=== PATIENT | female | born 1955 | race Caucasian/White ===

== ENCOUNTER 2018-10-02 12:54 | Emergency (ER) | payer OTHER, SELFPAY ==
[2018-10-02 13:07] VITALS: BP 180/100; PULSE 83; RESP 18; TEMP 36.6
--- NOTE | 2018-10-02 13:07 | ED.GENADUL_ITS ---
Discharge Plan Disposition Patient Disposition: HOME Condition: Good Discharge Details Chief Complaint: RespSymp Clinical Impression: URI (upper respiratory infection), COPD exacerbation Reason For Visit: fatigue ED Provider: Filipe Taylor Home Meds and New Rx's Prescriptions: New prednisone 20 mg tablet 60 mg PO DAILY 5 Days Qty: 15 RF: 0 doxycycline hyclate 100 mg tablet 100 mg PO BID Qty: 14 RF: 0 Continue amlodipine 5 mg Tablet 5 mg PO DAILY AM RF: 0 losartan 100 mg Tablet 100 mg PO DAILY AM RF: 0 escitalopram oxalate 20 mg Tablet 20 mg PO DAILY AM RF: 0 Discharge Instructions Instructions: Upper Respiratory Infection (ED) Additional Instructions: I have referred you to a primary care provider that should reach out to you with an appointment. You should discuss with them having testing for copd if you have severe worsening shortness of breath not improving with the inhaler , severe abdominal pain or persistent vomit return to the emergency department Medical Decision Making 63 yo female with hx of htn who hasn't taken her meds today which likely is causing her htn here, comes in with a weak of cough. She describes general weakness and mild frontal headaches over her sinuses, had fevers last week but none for past few days. Denies rashes, recent travel, chest pain or pressure or abd pain. She has wheezing at the bases bilaterally with no evidence of repsiratory distress even when walking. She likely has copd that is undiagnosed given she has smoked for about 35 years. Given no fever here and stable vital signs do not feel xray indicated. I am going to start her on abx and prednisone for possible copd exacerbation and refer her to local pcp as her pcp in [place] retired recently. Differential Diagnosis uri, copd, pna HPI General Mode of arrival: ambulatory . Date/Time Provider Initiated Documentation: 10/02/18 12:55 . Limitations to Documentation: no limitations . Information obtained by: patient . History of Present Illness 63 year old F presents to the emergency department with the chief complaint of cough, described as mild, Patient reports no radiation. Patient started experiencing this week(s) (1) and it has been constant. No relieving factors improve symptom(s), No exacerbating factors reported . Patient did receive the following treatments prior to arrival, none Related Data Home Medications Medication Instructions Recorded Confirmed amlodipine 5 mg PO DAILY AM 10/02/18 10/02/18 doxycycline hyclate 100 mg PO BID #14 tab 10/02/18 escitalopram oxalate 20 mg PO DAILY AM 10/02/18 10/02/18 losartan 100 mg PO DAILY AM 10/02/18 10/02/18 prednisone 60 mg PO DAILY 5 Days #15 tab 10/02/18 Previous Rx's Medication Instructions Recorded doxycycline hyclate 100 mg PO BID #14 tab 10/02/18 prednisone 60 mg PO DAILY 5 Days #15 tab 10/02/18 Allergies Allergy/AdvReac Type Severity Reaction Status Date / Time Sulfa (Sulfonamide Allergy Unverified 10/02/18 13:04 Antibiotics) Review of Systems Review of Systems All systems reviewed & are unremarkable except as noted in HPI and below Eyes Denies loss of vision ENT Denies change in voice Cardiovascular Denies chest pain and Denies dyspnea Respiratory Denies dyspnea Gastrointestinal Denies abdominal pain, Denies nausea and Denies vomiting Genitourinary Denies dysuria Musculoskeletal Denies joint swelling Integumentary/Breasts Denies rash Neurologic Denies loss of vision Psychiatric Denies depression Endocrine Denies cold intolerance and Denies heat intolerance Allergic/Immunologic Denies urticaria Exam Const General: no acute distress Orientation: alert [facility] Head: normal to inspection Ears: external ears normal General nose exam: external nose normal Mouth: moist mucous membranes Eyes General: appearance normal, both eyes and all related structures Neck Neck: normal visual inspection Resp Effort & Inspection: normal respiratory effort and able to speak in complete sentences Auscultation: wheezes Cardio Rate: regular rate Skin General skin exam: no rashes or lesions noted Neuro General: alert and oriented x3 Extrem General: normal to inspection Psych Mental Status: mental status grossly normal
[2018-10-02] MEDS: Albuterol HFA 8 GM 60 PUFF INH IH (13:17)
[2018-10-02] MEDS: Inhaler, Assist Device 1 EACH MC (13:18)
== END 2018-10-02 13:23 | disposition home or self-care (01) ==
LOC: ER 13:57
PROVIDERS: Emergency Provider Emergency Medicine
DX: J06.9 Acute upper respiratory infection, unspecified (principal); J44.1 Chronic obstructive pulmonary disease with (acute) exacerbation; F17.210 Nicotine dependence, cigarettes, uncomplicated; I10 Essential (primary) hypertension
CPT/HCPCS: 99283

== ENCOUNTER 2019-01-27 07:22 | Day surgery (SDC) | payer OTHER, SELFPAY ==
[2019-01-27] VITALS (7 sets, daily range): BP systolic 97–116; BP diastolic 54–75; PULSE 74–85; RESP 1–22; TEMP 36.4–36.6; O2SAT 89–99
--- NOTE | 2019-01-27 06:54 | COLE_ITS ---
Date of service: 01/27/19 Time of Service: 09: Colonoscopy Report Date of procedure: 01/27/19 Pre-op diagnosis general: Colon Cancer Screening Post-op diagnosis procedure note: other (Diverticulosis, multiple polyps) Procedure: Colonoscopy with polypectomy by forceps Surgeon: Lore Diaz Anesthesia proc note operative: other (General/ Nancie Galan CRNA) Estimated blood loss (mL): 5 Pathology: other (ascending colon polyp x3, sigmoid polyps x 2, rectal polyps x5) Complications: None Disposition: same day Indications: Mrs. Sosa is a pleasant 64 year old female seen in the office for a colonoscopy. Risks, benefits and complications have been reviewed. Complications include but are not limited to bleeding, pain, perforation, missed small lesion/polyp, sore throat, aspiration and adverse reaction to the med ications. Questions were entertained and answered to their satisfaction and they wished to proceed. No guarantees were given or implied. Prep: Miralax/Dulcolax Procedure Start Time: : Procedure End Time: 10:08 Retraction Time: 55 minutes Findings: Multiple small polyps noted and removed with cold forceps Diverticulosis of descending and sigmoid colon Procedure Description: After informed consent was obtained the patient was taken to the procedure room and placed in a left decubitous position. Monitors were applied and a time out was done. The patients name, date of , procedure, allergies to medications and metal in their body was reviewed. The patient was then sedated. Once sedated and comfortable a rectal exam was done. External exam was normal. Internal exam revealed a normal sphincter tone and no palpable masses. The scope was then introduced and retro-flexed. Small internal hemorrhoids were identified. The scope was then advanced to the cecum without difficulty. The TI and appendiceal orifice were identified. The prep was good. The scope was advanced into the terminal ileum which was normal. The scope was then slowly retracted over55 minutes back into the rectum. Polyps were removed with cold forceps in the ascending, sigmoid and rectum. The colonoscopy was difficult due to patient coughing throughout the procedure which then collapsed the colon. The patient also had some small amount of bilious emesis which was suctioned by Anesthesia. The scope was removed and the patient was woken up and taken back to Same day surgery in stable condition. She was monitored for any aspiration symptoms. The patient tolerated the procedure well and there were no immediate complications. Follow up: The patient should follow up in 3-5 years unless they develop changes in bowel habits or other new gastrointestinal complaints.
--- NOTE | 2019-01-27 06:54 | W.PM.DSUDISC ---
Discharge Plan Disposition Patient Disposition: HOME Condition: Good Discharge Details Reason For Visit: Screening Colonoscopy Attending Provider: Lore Diaz Primary Care Provider: Fabricio Sterling Home Meds and New Rx's Prescriptions: Continued triamcinolone acetonide 0.1 % cream 1 applic TP TID PRN Qty: 80 RF: 2 fluocinonide 0.05 % solution 1 applic TP BID RF: 0 naltrexone 50 mg tablet 50 mg PO DAILY Qty: 30 RF: 5 amlodipine 10 mg tablet 10 mg PO DAILY Qty: 30 RF: 11 buspirone 10 mg tablet 5 mg PO BID Qty: 60 RF: 11 albuterol sulfate 90 mcg/actuation HFA aerosol inhaler 1 puff IH Q6H PRNRF: 0 losartan 100 mg tablet 100 mg PO DAILY AM RF: 0 escitalopram oxalate 20 mg Tablet 20 mg PO DAILY AM RF: 0 Discontinued polyethylene glycol 3350 17 gram/dose powder 238 gm PO ONCE Qty: 238 RF: 0 bisacodyl [Dulcolax (bisacodyl)] 5 mg tablet,delayed release (DR/EC) 5 mg PO ONCE Qty: 4 RF: 0 Discharge Instructions Instructions: Colonoscopy (DC), Diverticulosis (DC), Colorectal Polyps (DC) Additional Instructions: Findings: Diverticulosis multiple small polyps Follow up: 3-5 years Please call if you develop: fevers >101.5 Nausea or Vomiting Abdominal pain that is not transient DAY SURGERY UNIT POST COLONOSCOPY INSTRUCTIONS 1. Because there will be medication in your system for the next 24 hours, you may feel a little sleepy. Your coordination will be affected. Therefore: a. Do not drive or operate dangerous equipment for 24 hours. b. Do not drink alcohol beverages for 24 hours (not even beer). c. Plan to go home and rest for the day. 2. Generally there are no restrictions on your activity after a day or so has gone by, but you may feel a bit fatigued for a few days. 3 After you arrive home you may have a light meal and return to a normal diet as you can tolerate it without feeling sick to your stomach. 4. After surgery, you may feel pain or discomfort. This should be only transient, but if it persists please contact your doctor. 5. If there are any questions regarding the findings of your procedure, please feel free to contact your doctor. 6. If you are unable to contact your doctor with a problem, contact the hospital at [phone]. 5. Continue all your regular medications unless directed otherwise. I understand the above instructions and have no questions. Signature of Patient or Responsible Adult Escort Date/Time Name of Responsible Adult Escort Signature of Nurse Date/Time Activity:: Activity as Tolerated Diet:: High Fiber diet Discharge Orders Discharge Orders: Discharge Order (Routine); Ordered 01/27/19 Ordered By: Lore Diaz DS: Diagnosis Discharge Diagnosis (1) S/P colonoscopy: Status: Acute (2) Colorectal polyps: Status: Acute (3) Diverticulosis: Status: Acute
[2019-01-27] MEDS: Lactated Ringers 1,000 ML 80 ML IV (07:56)
--- NOTE | 2019-01-27 09:25 | BOWEL_PTH ---
PATIENT: Danna Andrade LOC: [facility] U#:[id number] AGE/SX: 64/F ROOM: RE01/27/[address]: Lore Diaz MD : 1955 BED: DIS: 01/27/2019 SPEC #: [id number] RECD: 01/27/19 12:48 STATUS: COTY REQ #: [id number] KENYATTA: 01/27/19 09:[address]: Lore Diaz DEPT: Surgical Specimen RECD BY: Rocio Beard ENTERED: 01/27/19 12:49 SP TYPE: Bowel OTHR DR: Fabricio Sterling MD Tissues: 1 - BIOPSY BOWEL 2 - BIOPSY BOWEL 3 - BIOPSY BOWEL Procedures: GROSS AND MICRO LEVEL 4 Comments: [id number]
[2019-01-27] MEDS: Albuterol/Ipratropium 3 ML UPD VIAL UPD (11:21)
[2019-01-27] MEDS: Albuterol 2.5 MG/3 ML INH SOLN VIAL UPD (12:05)
== END 2019-01-27 12:28 | disposition home or self-care (01) ==
LOC: SUR 07:22
PROVIDERS: PCP Family Medicine; Visit Provider Surgery
PROC: 0DJD8ZZ Inspection of Lower Intestinal Tract, Via Natural or Artificial Opening Endoscopic (ICD-10-PCS; CPT 45378; principal; 2019-01-27 08:15)
DX: Z12.11 Encounter for screening for malignant neoplasm of colon (principal); D12.2 Benign neoplasm of ascending colon; D12.8 Benign neoplasm of rectum; K63.5 Polyp of colon; K57.30 Diverticulosis of large intestine without perforation or abscess without bleeding; I10 Essential (primary) hypertension; F17.210 Nicotine dependence, cigarettes, uncomplicated; F10.10 Alcohol abuse, uncomplicated
CPT/HCPCS: 45380; 88305; 94640; J7613; J7620

== ENCOUNTER 2019-01-29 15:33 | Outpatient (CLI) | payer OTHER, SELFPAY ==
--- NOTE | 2019-01-29 12:30 | DI.RAD_ITS ---
SYMPTOMS/DIAGNOSIS: LOCALIZED WHEEZE/RHONCHI, LEFT LOWER LOBE, WITH PERSISTENT SYMPTOMS, ASPIRATION INTO RESPIRATORY TRACT, ? PNEUMONIA, T17.908A PA AND LATERAL CHEST: The right lung is well expanded and clear. There is a small density projected over the lingula, which could represent a small region of infiltration or atelectasis. There is no pleural effusion. The heart is not enlarged. SUMMARY: Question a small region of atelectasis and/or infiltrate involving the region of the lingula. No old films were extant on this patient and a follow-up PA and lateral examination in four to six weeks is suggested to assess clearing.
== END 2019-01-29 15:53 ==
PROVIDERS: PCP Family Medicine; Visit Provider Family Medicine
DX: R06.2 Wheezing (principal); R91.8 Other nonspecific abnormal finding of lung field
CPT/HCPCS: 71046

== ENCOUNTER 2019-02-05 21:09 | Outpatient (REF) | payer OTHER, SELFPAY | END 2019-02-05 21:29 | LOC: LBN 21:09 | PROVIDERS: PCP Family Medicine; Visit Provider Family Medicine | DX: J18.9 Pneumonia, unspecified organism (principal) | CPT/HCPCS: 87070; 87205 ==

== ENCOUNTER 2019-02-25 11:46 | Outpatient (CLI) | payer OTHER, SELFPAY ==
[2019-02-25 13:48] LABS: Bilirubin Negative (Negative); Blood Moderate (Negative); Clarity Clear; Glucose Negative (Negative); Ketones Negative (Negative); Leukocyte Esterase Small (Negative); Nitrite Negative (Negative); Specific Gravity 1.015 (1.005-1.025); Urobilinogen 0.2 EU/dL (Up TO 0.2); pH 6.5 (5-8)
[2019-02-25 14:02] LABS: Epithelial Cells Few HPF (Negative); WBC 20-50 HPF (0-5)
[2019-02-25 14:03] LABS: Bacteria Negative HPF (Negative); C & S Indicated? Yes; Casts Negative LPF (Negative); Crystals Negative HPF (Negative); Mucus Negative (Negative); Other Cells Moderate Renal (Negative)
== END 2019-02-25 12:06 ==
PROVIDERS: PCP Family Medicine; Visit Provider Family Medicine
DX: R30.0 Dysuria (principal)
CPT/HCPCS: 80053; 80061; 83721; 87077; 81003; 81015; 85025; 87086; 87186

== ENCOUNTER 2019-05-22 09:31 | Emergency (ER) | payer OTHER, SELFPAY ==
[2019-05-22 09:33] VITALS: BP 136/83; PULSE 71; RESP 16; TEMP 37.1; O2SAT 97
--- NOTE | 2019-05-22 09:39 | W.ED.GENAD ---
Discharge Plan Disposition Patient Disposition: HOME Condition: Fair Discharge Details Chief Complaint: Cellulitis Clinical Impression: Cellulitis Primary Care Provider: Fabricio Sterling ED Provider: Heydi Love Home Meds and New Rx's Prescriptions: New cephalexin [Keflex] 500 mg capsule 500 mg PO QID Qty: 20 RF: 0 Continued triamcinolone acetonide 0.1 % cream 1 applic TP TID PRN Qty: 80 RF: 2 fluocinonide 0.05 % solution 1 applic TP BID RF: 0 naltrexone 50 mg tablet 50 mg PO DAILY Qty: 30 RF: 5 amlodipine 10 mg tablet 10 mg PO DAILY Qty: 30 RF: 11 lansoprazole [Prevacid] 30 mg capsule,delayed release(DR/EC) 30 mg PO DAILY Qty: 30 RF: 0 albuterol sulfate 90 mcg/actuation HFA aerosol inhaler 1 puff IH Q6H PRNRF: 0 buspirone 10 mg tablet 10 mg PO BID Qty: 60 RF: 11 losartan 100 mg tablet 100 mg PO DAILY AM Qty: 30 RF: 11 escitalopram oxalate 20 mg tablet 20 mg PO DAILY AM Qty: 30 RF: 11 Discharge Instructions Instructions: Cellulitis (ED) Additional Instructions: Encourage hydration. Tylenol and/or ibuprofen as needed for discomfort. Please take the Keflex as prescribed for infection. Please note any shoes that rub on this. Keep area covered if in shoes. Please continue to monitor area for spreading of redness, increased pain, fever/chills. If these or other new/worsening symptoms arise please seek care urgently once again. Please follow-up for wound evaluation next week if infection is not completely cleared. Referrals: Fabricio Sterling [Primary Care Provider] - Medical Decision Making Patient is 64-year-old female presents today for evaluation of wounds to her bilateral feet. She reports that 2 days ago her was attempting to move her feet at night with his when his toenails scratched the dorsal surface of both feet. Patient suffered small abrasions and frequently wore sandals rubbed against these areas. Began noting open wounds after the rubbing of the shoes yesterday. Has since developed surrounding erythema particular on the right foot. She denies any fevers or chills. Denies other injury the time of the incident. And concern for cellulitis on the right foot around the open wound. There is no evidence to suggest an abscess. Patient appears nontoxic, is afebrile. Patient will be treated with Keflex. Encourage hydration. She was given strict return precautions. Area of erythema was demarcated by myself. Advise follow-up with primary care next week if not completely improved. All of her questions and concerns were addressed and she is in agreement this plan HPI General Mode of arrival: ambulatory. Date/Time Provider Initiated Documentation: 05/22/19 09:31. Limitations to Documentation: no limitations. Information obtained by: patient and RN notes reviewed. History of Present Illness 64 year old F presents to the emergency department with the chief complaint of wounds with surrounding erythema to bilateral feet, described as mild, with intensity rated at 2. Quality is described as aching, and is localized to the left, right (right worse than left) and lower extremity. Patient reports no radiation. Patient started experiencing this day(s) (2) and it has been constant. Immobilization improves symptom(s), Movement worsens symptoms (rubbing in shoes) . Patient notes no other symptoms.; denies chest pain and fever/chills. Patient did receive the following treatments prior to arrival, none Related Data Home Medications Medication Instructions Recorded Confirmed albuterol sulfate HFA 90 1 puff IH Q6H PRN 11/06/18 05/22/19 mcg/actuation aerosol inhaler triamcinolone acetonide 0.1 % 1 applic TP TID PRN #80 gm 11/22/18 05/22/19 topical cream amlodipine 10 mg tablet 10 mg PO DAILY #30 tab 12/06/18 05/22/19 fluocinonide 0.05 % topical 1 applic TP BID 12/06/18 05/22/19 solution naltrexone 50 mg tablet 50 mg PO DAILY #30 tab 12/06/18 05/22/19 buspirone 10 mg tablet 10 mg PO BID #60 tab 01/29/19 05/22/19 lansoprazole 30 mg capsule,delayed 30 mg PO DAILY #30 cap 02/05/19 05/22/19 release escitalopram 20 mg tablet 20 mg PO DAILY AM #30 tab 03/27/19 05/22/19 losartan 100 mg tablet 100 mg PO DAILY AM #30 tab 03/27/19 05/22/19 cephalexin [Keflex] 500 mg PO QID #20 cap 05/22/19 Previous Rx's Medication Instructions Recorded triamcinolone acetonide 0.1 % 1 applic TP TID PRN #80 gm 11/22/18 topical cream amlodipine 10 mg tablet 10 mg PO DAILY #30 tab 12/06/18 naltrexone 50 mg tablet 50 mg PO DAILY #30 tab 12/06/18 buspirone 10 mg tablet 10 mg PO BID #60 tab 01/29/19 lansoprazole 30 mg capsule,delayed 30 mg PO DAILY #30 cap 02/05/19 release escitalopram 20 mg tablet 20 mg PO DAILY AM #30 tab 03/27/19 losartan 100 mg tablet 100 mg PO DAILY AM #30 tab 03/27/19 cephalexin [Keflex] 500 mg PO QID #20 cap 05/22/19 Allergies Allergy/AdvReac Type Severity Reaction Status Date / Time Sulfa (Sulfonamide Allergy Verified 05/22/19 09:39 Antibiotics) General Stated Complaint: Cellulitis PAYAL: 4 Review of Systems Constitutional Reports as per HPI, Denies chills and Denies fever(s) Musculoskeletal Reports as per HPI Integumentary/Breasts Reports as per HPI Neurologic Reports as per HPI, Denies sensory deficit and Denies paresthesias PFSH Medical History Diverticulosis (Acute) Colorectal polyps (Acute) Surgical History S/P colonoscopy (Acute ~01/27/19) Social History Smoking/Tobacco Use Status: Current every day Drug use: Occasionally Substance use type: marijuana Do you feel safe at home: Yes Do you feel safe in your relationship?: Yes Exam Const General: cooperative, healthy appearing, comfortable, no acute distress and well developed Nutritional Appearance: average body habitus and well nourished Orientation: alert and awake Resp Effort & Inspection: normal respiratory effort, able to speak in complete sentences and no respiratory distress Cardio Rate: regular rate Rhythm: regular rhythm Neuro General: alert and awake Cognition: normal cognition Speech: speech normal Gait: normal gait Sensory Exam: no sensory deficits noted Extrem Right lower extremity: full ROM, normal capillary refill, no joint enlargement and foot Details: normal capillary refill, tenderness (along area of erythema), toes with normal ROM, no edema, laceration (wound as drawn below, superficial 1cm x 0.5cm with surrounding erythema) and motor-sensory exam Details: light-touch normal; no edema Left lower extremity: full ROM, normal capillary refill, no joint enlargement and foot Details: normal capillary refill, tenderness (at area of wound), toes with normal ROM, no edema, laceration (5mm x 5mm wound dorsal foot) and motor-sensory exam Details: light-touch normal; no edema Ankle/foot/toe images: 1. area of open wound 2. surrounding erythema 3. open wound Psych Appearance: grossly normal and well kempt Mental Status: mental status grossly normal Speech and Movement: speech and movement normal Course Vital Signs Temperature 37.1 C 05/22/19 09:33 Pulse 71 05/22/19 09:33 Respiratory Rate 16 05/22/19 09:33 Blood Pressure 136/83 05/22/19 09:33 Pulse Oximetry 97 05/22/19 09:33 Temperature 37.1 C 05/22/19 09:33 Temperature Source Temporal Artery Scan 05/22/19 09:33 Pulse 71 05/22/19 09:33 Respiratory Rate 16 05/22/19 09:33 Blood Pressure 136/83 05/22/19 09:33 Blood Pressure Position Sitting 05/22/19 09:33 Pulse Oximetry 97 05/22/19 09:33 Oxygen Delivery Method Room Air 05/22/19 09:33 Oxygen Flow Rate 0 05/22/19 09:33 Pain Level 2 05/22/19 09:33
--- NOTE | 2019-05-22 10:01 | ED.GENADUL_ITS ---
Discharge Plan Disposition Patient Disposition: HOME Condition: Fair Discharge Details Chief Complaint: Cellulitis Clinical Impression: Cellulitis Primary Care Provider: Fabricio Sterling ED Provider: Heydi Love Home Meds and New Rx's Prescriptions: New cephalexin [Keflex] 500 mg capsule 500 mg PO QID Qty: 20 RF: 0 Continued triamcinolone acetonide 0.1 % cream 1 applic TP TID PRN Qty: 80 RF: 2 fluocinonide 0.05 % solution 1 applic TP BID RF: 0 naltrexone 50 mg tablet 50 mg PO DAILY Qty: 30 RF: 5 amlodipine 10 mg tablet 10 mg PO DAILY Qty: 30 RF: 11 lansoprazole [Prevacid] 30 mg capsule,delayed release(DR/EC) 30 mg PO DAILY Qty: 30 RF: 0 albuterol sulfate 90 mcg/actuation HFA aerosol inhaler 1 puff IH Q6H PRNRF: 0 buspirone 10 mg tablet 10 mg PO BID Qty: 60 RF: 11 losartan 100 mg tablet 100 mg PO DAILY AM Qty: 30 RF: 11 escitalopram oxalate 20 mg tablet 20 mg PO DAILY AM Qty: 30 RF: 11 Discharge Instructions Instructions: Cellulitis (ED) Additional Instructions: Encourage hydration. Tylenol and/or ibuprofen as needed for discomfort. Please take the Keflex as prescribed for infection. Please note any shoes that rub on this. Keep area covered if in shoes. Please continue to monitor area for spreading of redness, increased pain, fever/chills. If these or other n ew/worsening symptoms arise please seek care urgently once again. Please follow-up for wound evaluation next week if infection is not completely cleared. Referrals: Fabricio Sterling [Primary Care Provider] - Medical Decision Making Patient is 64-year-old female presents today for evaluation of wounds to her bilateral feet. She reports that 2 days ago her was attempting to move her feet at night with his when his toenails scratched the dorsal surface of both feet. Patient suffered small abrasions and frequently wore sandals rubbed against these areas. Began noting open wounds after the rubbing of the shoes yesterday. Has since developed surrounding erythema particular on the right foot. She denies any fevers or chills. Denies other injury the time of the incident. And concern for cellulitis on the right foot around the open wound. There is no evidence to suggest an abscess. Patient appears nontoxic, is afebrile. Patient will be treated with Keflex. Encourage hydration. She was given strict return precautions. Area of erythema was demarcated by myself. Advise follow-up with primary care next week if not completely improved. All of her questions and concerns were addressed and she is in agreement this plan HPI General Mode of arrival: ambulatory . Date/Time Provider Initiated Documentation: 05/22/19 09:31 . Limitations to Documentation: no limitations . Information obtained by: patient and RN notes reviewed . History of Present Illness 64 year old F presents to the emergency department with the chief complaint of wounds with surrounding erythema to bilateral feet, described as mild, with intensity rated at 2. Quality is described as aching, and is localized to the left, right (right worse than left) and lower extremity. Patient reports no radiation. Patient started experiencing this day(s) (2) and it has been constant. Immobilization improves symptom(s), Movement worsens symptoms (rubbing in shoes) . Patient notes no other symptoms.; denies chest pain and fever/chills. Patient did receive the following treatments prior to arrival, none Related Data Home Medications Medication Instructions Recorded Confirmed albuterol sulfate HFA 90 1 puff IH Q6H PRN 11/06/18 05/22/19 mcg/actuation aerosol inhaler triamcinolone acetonide 0.1 % 1 applic TP TID PRN #80 gm 11/22/18 05/22/19 topical cream amlodipine 10 mg tablet 10 mg PO DAILY #30 tab 12/06/18 05/22/19 fluocinonide 0.05 % topical 1 applic TP BID 12/06/18 05/22/19 solution naltrexone 50 mg tablet 50 mg PO DAILY #30 tab 12/06/18 05/22/19 buspirone 10 mg tablet 10 mg PO BID #60 tab 01/29/19 05/22/19 lansoprazole 30 mg capsule,delayed 30 mg PO DAILY #30 cap 02/05/19 05/22/19 release escitalopram 20 mg tablet 20 mg PO DAILY AM #30 tab 03/27/19 05/22/19 losartan 100 mg tablet 100 mg PO DAILY AM #30 tab 03/27/19 05/22/19 cephalexin [Keflex] 500 mg PO QID #20 cap 05/22/19 Previous Rx's Medication Instructions Recorded triamcinolone acetonide 0.1 % 1 applic TP TID PRN #80 gm 11/22/18 topical cream amlodipine 10 mg tablet 10 mg PO DAILY #30 tab 12/06/18 naltrexone 50 mg tablet 50 mg PO DAILY #30 tab 12/06/18 buspirone 10 mg tablet 10 mg PO BID #60 tab 01/29/19 lansoprazole 30 mg capsule,delayed 30 mg PO DAILY #30 cap 02/05/19 release escitalopram 20 mg tablet 20 mg PO DAILY AM #30 tab 03/27/19 losartan 100 mg tablet 100 mg PO DAILY AM #30 tab 03/27/19 cephalexin [Keflex] 500 mg PO QID #20 cap 05/22/19 Allergies Allergy/AdvReac Type Severity Reaction Status Date / Time Sulfa (Sulfonamide Allergy Verified 05/22/19 09:39 Antibiotics) General Stated Complaint: Cellulitis PAYAL: 4 Review of Systems Constitutional Reports as per HPI, Denies chills and Denies fever(s) Musculoskeletal Reports as per HPI Integumentary/Breasts Reports as per HPI Neurologic Reports as per HPI, Denies sensory deficit and Denies paresthesias PFSH Medical History Diverticulosis (Acute) Colorectal polyps (Acute) Surgical History S/P colonoscopy (Acute ~01/27/19) Social History Smoking/Tobacco Use Status: Current every day Drug use: Occasionally Substance use type: marijuana Do you feel safe at home: Yes Do you feel safe in your relationship?: Yes Exam Const General: cooperative, healthy appearing, comfortable, no acute distress and well developed Nutritional Appearance: average body habitus and well nourished Orientation: alert and awake Resp Effort & Inspection: normal respiratory effort, able to speak in complete sentences and no respiratory distress Cardio Rate: regular rate Rhythm: regular rhythm Neuro General: alert and awake Cognition: normal cognition Speech: speech normal Gait: normal gait Sensory Exam: no sensory deficits noted Extrem Right lower extremity: full ROM, normal capillary refill, no joint enlargement and foot Details: normal capillary refill, tenderness (along area of erythema), toes with normal ROM, no edema, laceration (wound as drawn below, superficial 1cm x 0.5cm with surrounding erythema) and motor-sensory exam Details: light- touch normal; no edema Left lower extremity: full ROM, normal capillary refill, no joint enlargement and foot Details: normal capillary refill, tenderness (at area of wound), toes with normal ROM, no edema, laceration (5mm x 5mm wound dorsal foot) and motor- sensory exam Details: light-touch normal; no edema Ankle/foot/toe images: 1. area of open wound 2. surrounding erythema 3. open wound Psych Appearance: grossly normal and well kempt Mental Status: mental status grossly normal Speech and Movement: speech and movement normal Course Vital Signs Temperature 37.1 C 05/22/19 09:33 Pulse 71 05/22/19 09:33 Respiratory Rate 16 05/22/19 09:33 Blood Pressure 136/83 05/22/19 09:33 Pulse Oximetry 97 05/22/19 09:33 Temperature 37.1 C 05/22/19 09:33 Temperature Source Temporal Artery Scan 05/22/19 09:33 Pulse 71 05/22/19 09:33 Respiratory Rate 16 05/22/19 09:33 Blood Pressure 136/83 05/22/19 09:33 Blood Pressure Position Sitting 05/22/19 09:33 Pulse Oximetry 97 05/22/19 09:33 Oxygen Delivery Method Room Air 05/22/19 09:33 Oxygen Flow Rate 0 05/22/19 09:33 Pain Level 2 05/22/19 09:33
== END 2019-05-22 09:57 | disposition home or self-care (01) ==
PROVIDERS: Emergency Provider Physician Assistant; PCP Family Medicine
DX: L03.115 Cellulitis of right lower limb (principal); L03.116 Cellulitis of left lower limb; S90.811A Abrasion, right foot, initial encounter; S90.812A Abrasion, left foot, initial encounter; W26.8XXA Contact with other sharp object(s), not elsewhere classified, initial encounter
CPT/HCPCS: 99283

== ENCOUNTER 2019-12-06 01:44 | Outpatient (CLI) | payer OTHER, SELFPAY ==
[2019-12-06 10:54] LABS: HGB 13.9 g/dL (12.0-15.5); Mean Corp. HGB Concentration 33.1 g/dL (32.0-36.0); Mean Corpuscular Hemoglobin 31.7 pg (27.0-33.0); Mean Corpuscular Volume 95.7 fL (80-95); Platelet Count 263 x1000/uL (130-400); RBC 4.39 m/cumm (4.00-5.20); RBC Distribution Width 13.2 % (11.7-14.6); White Blood Cell Count 7.94 k/cumm (4.4-10.8)
[2019-12-06 12:26] LABS: ALT 71 U/L (14-59); AST 66 U/L (15-37); Alkaline Phosphatase 75 U/L (46-116); Anion Gap 11.1 mmol/L (3-11); BUN 16 mg/dL (7-18); Bilirubin, Total 0.8 mg/dL (0.2-1.0); CO2 28.9 mmol/L (21.0-32.0); CREATININE 0.73 mg/dL (0.55-1.02); Calcium 8.9 mg/dL (8.5-10.1); Chloride 98 mmol/L (98-107); Glucose 90 mg/dL (74-106); Potassium 4.4 mmol/L (3.5-5.1); Sodium 138 mmol/L (136-145); TSH (W/Ref FT4) 1.09 uIU/mL (0.36-3.74); Total Protein 6.8 g/dL (6.4-8.2)
[2019-12-08 13:35] LABS: IgA 191 mg/dL (85-499); Tissue Transglutaminase IgA <1.2 U/mL (<4.0)
== END 2019-12-06 02:04 ==
PROVIDERS: PCP Family Medicine; Visit Provider Family Medicine
DX: Z00.00 Encounter for general adult medical examination without abnormal findings (principal); R10.10 Upper abdominal pain, unspecified; K52.9 Noninfective gastroenteritis and colitis, unspecified
CPT/HCPCS: 36415; 80053; 82784; 83516; 85027; 84443

== ENCOUNTER 2019-12-12 17:02 | Outpatient (REF) | payer OTHER, SELFPAY ==
--- NOTE | 2019-12-12 16:30 | PAPFT_PTH ---
PATIENT: Danna Andrade LOC: [facility] U#:[id number] AGE/SX: 64/F ROOM: RE12/12/[address]: Nazanin Thomas : 1955 BED: DIS: 12/12/2019 SPEC #: [id number] RECD: 12/12/19 17:41 STATUS: DAMIENPablo REAshwini #: [id number] KENYATTA: 12/12/19 16:[address]: Nazanin Thomas DEPT: [facility] Cytology RECD BY: oRcio Beard ENTERED: 12/12/19 17:42 SP TYPE: PAPFT AYE DR: Fabricio Sterling MD Tissues: 1 - CX/ENDOCX FOR PAP SMEARS Procedures: PAP THIN PREP/[facility] Screening HPV DNA PROBE Comments: [id number]
== END 2019-12-12 17:22 ==
LOC: LBN 17:02
PROVIDERS: PCP Family Medicine; Visit Provider Obstetrics & Gynecology Gynecology
DX: Z12.4 Encounter for screening for malignant neoplasm of cervix (principal); Z11.51 Encounter for screening for human papillomavirus (HPV)
CPT/HCPCS: 88142; 87624

== ENCOUNTER 2019-12-15 01:37 | Outpatient (CLI) | payer OTHER, SELFPAY ==
--- NOTE | 2019-12-15 07:30 | DI.US_ITS ---
EXAM: US ABDOMEN CLINICAL HISTORY: Upper abdominal pain w tenderness over gallbladder TECHNIQUE: Ultrasound performed using standard protocol. COMPARISON: No exams were available for comparison FINDINGS: The aorta is normal in diameter. The liver is normal in size and shows slightly increased echogenic ity consistent with mild hepatic steatosis. No focal liver lesions or biliary dilatation is seen. T he gallbladder is unremarkable, without evidence of stones or wall thickening. There is no tendernes s while scanning over the gallbladder. Spleen, kidneys and pancreas are unremarkable. IMPRESSION: Mild fatty infiltration of the liver. Normal appearing gallbladder.
== END 2019-12-15 01:57 ==
PROVIDERS: PCP Family Medicine; Visit Provider Family Medicine
DX: R10.10 Upper abdominal pain, unspecified (principal); K76.0 Fatty (change of) liver, not elsewhere classified
CPT/HCPCS: 76700

== ENCOUNTER 2021-03-02 17:23 | Outpatient (REF) | payer OTHER, SELFPAY ==
[2021-03-02 14:01] LABS: ALT 63 U/L (14-59); AST 57 U/L (15-37); Albumin 4.3 g/dL (3.4-5.0); Alkaline Phosphatase 76 U/L (46-116); Anion Gap 12.1 mmol/L (3-11); BUN 10 mg/dL (7-18); Bilirubin, Total 0.6 mg/dL (0.2-1.0); CO2 23.9 mmol/L (21.0-32.0); CREATININE 0.7 mg/dL (0.55-1.02); Calcium 9.3 mg/dL (8.5-10.1); Calculated LDL 35 mg/dL (<100); Chloride 99 mmol/L (98-107); Cholesterol 172 mg/dL (<200); Glucose 95 mg/dL (74-106); HDL Cholesterol 131 mg/dL (40-60); Potassium 4.7 mmol/L (3.5-5.1); Sodium 135 mmol/L (136-145); Total Protein 7.2 g/dL (6.4-8.2); Triglyceride 34 mg/dL (<150)
== END 2021-03-02 17:24 | disposition home or self-care (01) ==
LOC: LBN 17:23
PROVIDERS: PCP Family Medicine; Visit Provider Physician Assistant
DX: Z00.00 Encounter for general adult medical examination without abnormal findings (principal); R79.89 Other specified abnormal findings of blood chemistry
CPT/HCPCS: 80053; 80061

== ENCOUNTER → 2021-03-11 04:02 | Outpatient (CLI) | payer OTHER, SELFPAY ==
--- NOTE | 2021-03-11 08:00 | DI.RAD_ITS ---
EXAM: XR WRIST RT COMPL NAVICULAR CLINICAL HISTORY: wrist pain, right, injury one month ago,M25.531. TECHNIQUE: 2D digital imaging was performed. COMPARISON: No exams were available for comparison FINDINGS: BONES: No acute, subacute or old fracture is present. No bony destructive lesion is seen. JOINTS: The carpal bones are normally aligned. There are minimal degenerative changes at the 1st car pal metacarpal joint, interphalangeal joint of the thumb and 1st metacarpophalangeal joint. SOFT TISSUE: Normal. IMPRESSION: Mild degenerative changes. DATA REPOSITORY: RADIATION DOSE DELIVERED:
--- NOTE | 2021-03-11 08:00 | DI.CTLCSR_ITS ---
EXAM: CT CHEST LUNG CANCER SCREEN CLINICAL HISTORY: Screening for lung cancer,CURRENT SMOKER,F17.200 TECHNIQUE: Imaging Protocol: Axial computed tomography images with coronal and sagittal reformatted images were created and reviewed COMPARISON: CR XR CHEST 2V PA LATERAL from 01/29/2019 FINDINGS: Tracheobronchial tree: Patent where visualized. Mediastinum and Coco: No dominant adenopathy or fluid collection. Pulmonary parenchyma: No consolidation or dominant measurable mass. Mild right middle lobe scarring o r atelectasis. Lung Nodules: None. Pleura: No effusion or pneumothorax. Heart: The heart is not dilated. No coronary artery calcifications are seen. Aorta: Thoracic aorta non-dilated. Upper abdomen: Unremarkable. Bones: Degenerative disc changes. Soft Tissues: Unremarkable. IMPRESSION: Normal low dose CT lung screening Lung RADS Cat 1 - Negative: No nodules and definitely benign nodules Lung-RADS 1.0 CATEGORIES: Category 0 - Prior chest CT exam(s) being located for comparison. Category 1 - Annual screening in 12 months. No nodules or definitely benign nodules. Category 2 - Annual screening in 12 months. Benign appearance. Nodules with low likelihood of becomin g active cancer. Category 3 - 6-month follow-up. Probably benign. Short-term follow-up suggested. Nodules with low lik elihood of becoming active cancer. Category 4A - 3-month follow-up and CT/PET if >8 mm in size. Suspicious finding. Findings which requi re additional testing. Category 4B - Findings which require additional testing and tissue sampling. Modifier S- Potentially clinically significant findings (non lung cancer) RADIATION DOSE DELIVERED: 76.59mGy.cm Total DLP 1.84mGy CTDIvol DATA REPOSITORY: All CT scans at this facility are submitted to the National Radiology Data Registry (NRDR) Dose Index Registry (DIR) with the [employer] (ACR). RADIATION OPTIMIZATION: All CT scans at this facility use at least one of these dose optimization te chniques: automated exposure control; mA and/or kV adjustment per patient size (includes targeted exa ms where dose is matched to clinical indication); or iterative reconstruction.
--- NOTE | 2021-03-11 16:00 | DI.RAD_ITS ---
EXAM: XR TOE LT GREAT CLINICAL HISTORY: left great toe pain, ? severe arthritis,M79.675. TECHNIQUE: 2D digital imaging was performed. COMPARISON: No exams were available for comparison FINDINGS: BONES: No acute fracture is present. No bony destructive lesion is seen. JOINTS: No dislocation present. There are severe degenerative changes of the 1st MTP joint. There i s a obliteration of the joint space. There is prominent spurring from the 1st metatarsal head and ba se of the 1st proximal phalanx. No bony erosions are seen. Degenerative changes are also noted at t he sesamoid 1st metatarsal joints. The interphalangeal joint is unremarkable. SOFT TISSUE: Normal. 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 DATA REPOSITORY: RADIATION DOSE DELIVERED:
== END ==
PROVIDERS: PCP Family Medicine; Visit Provider Physician Assistant
DX: M79.675 Pain in left toe(s) (principal); M19.072 Primary osteoarthritis, left ankle and foot; M25.531 Pain in right wrist; M18.11 Unilateral primary osteoarthritis of first carpometacarpal joint, right hand; Z12.2 Encounter for screening for malignant neoplasm of respiratory organs; F17.210 Nicotine dependence, cigarettes, uncomplicated
CPT/HCPCS: 71271; 73110; 73660

== ENCOUNTER 2022-06-02 09:51 | Outpatient (CLI) | payer OTHER, SELFPAY ==
[2022-06-02 12:51] LABS: ALT 35 U/L (14-59); AST 35 U/L (15-37); Albumin 4.4 g/dL (3.4-5.0); Alkaline Phosphatase 79 U/L (46-116); Anion Gap 12.6 mmol/L (3-11); BUN 13 mg/dL (7-18); CO2 22.4 mmol/L (21.0-32.0); CREATININE 0.7 mg/dL (0.55-1.02); Calcium 9.2 mg/dL (8.5-10.1); Chloride 97 mmol/L (98-107); Glucose 102 mg/dL (74-106); Potassium 3.6 mmol/L (3.5-5.1); Sodium 132 mmol/L (136-145); Total Protein 7.9 g/dL (6.4-8.2)
== END 2022-06-02 09:52 | disposition home or self-care (01) ==
LOC: LOS 09:52
PROVIDERS: PCP Family Medicine; Visit Provider Family Medicine
DX: Z00.00 Encounter for general adult medical examination without abnormal findings (principal); I10 Essential (primary) hypertension; F10.10 Alcohol abuse, uncomplicated; F33.0 Major depressive disorder, recurrent, mild
CPT/HCPCS: 36415; 80053

== ENCOUNTER 2023-05-18 12:33 | Outpatient (CLI) | payer OTHER, SELFPAY ==
--- NOTE | 2023-05-18 10:30 | DI.RAD_ITS ---
Exam(s) XR CHEST 2V PA LATERAL EXAM: XR CHEST 2V PA LATERAL CLINICAL HISTORY: cough, chest pain, smoker, pneumonia, J18.9 TECHNIQUE: 2D digital imaging was performed. COMPARISON: CT CT CHEST LUNG CANCER SCREEN from 03/11/2021 FINDINGS: HEART: Normal size. Aorta: Not dilated. PULMONARY VASCULATURE: Normal. LUNGS: Clear. PLEURAL SPACE: No pleural effusion or pneumothorax. BONE:Unremarkable for age. IMPRESSION: No acute abnormality. DATA REPOSITORY: RADIATION DOSE DELIVERED:
== END 2023-05-18 12:53 ==
LOC: DI 12:37
PROVIDERS: PCP Family Medicine; Visit Provider Family Medicine
DX: J18.9 Pneumonia, unspecified organism (principal); R07.9 Chest pain, unspecified; F17.200 Nicotine dependence, unspecified, uncomplicated
CPT/HCPCS: 71046

== ENCOUNTER 2023-05-18 13:40 | Outpatient (REF) | payer OTHER, SELFPAY | END 2023-05-18 13:41 | disposition home or self-care (01) | LOC: LBN 13:40 | PROVIDERS: PCP Family Medicine; Visit Provider Family Medicine | DX: J18.9 Pneumonia, unspecified organism (principal) | CPT/HCPCS: 87070; 87205 ==

== ENCOUNTER 2023-07-05 05:33 | Outpatient (CLI) | payer OTHER, SELFPAY ==
[2023-07-05] MEDS: Inhaler, Assist Device 1 EACH MC (09:14)
[2023-07-05] MEDS: Albuterol HFA 18 GM 200 PUFF INH IH (09:14)
--- NOTE | 2023-07-06 13:10 | W.PFT ---
Date of service: 07/05/23 Time of Service: 07:55 Pulmonary Function Test Result Indications: Pneumonia Interpretation Spirometry: There is no airflow limitation. No bronchodilator response. Lung Volumes: Normal lung volumes Diffusion Capacity: Normal diffusion Airway Pressure: Increased airways resistance Impression Normal pulmonary function with an increase airways resistance, which can be seen in asthma or other disease with increase mucus production. Clinical Correlation therefore is recommended.
== END 2023-07-05 05:34 | disposition home or self-care (01) ==
LOC: RT 05:33
PROVIDERS: PCP Family Medicine; Visit Provider Family Medicine
DX: F17.210 Nicotine dependence, cigarettes, uncomplicated (principal); J18.9 Pneumonia, unspecified organism
CPT/HCPCS: 94060; 94726; 94729

== ENCOUNTER → 2023-07-31 01:20 | Outpatient (CLI) | payer OTHER, SELFPAY ==
--- NOTE | 2023-07-31 07:00 | DI.DEXA_ITS ---
Exam(s) XR DEXA BONE DENSITY W/WO JYOTI EXAM: XR DEXA BONE DENSITY W/WO JYOTI CLINICAL HISTORY: screening for osteoporosis in postmenopausal woman, Z78 TECHNIQUE: [employer] C densitometer analysis of left hip, lumbar spine and left forearm. Lat eral survey image of the thoracic and lumbar spine. COMPARISON: No exams were available for comparison FINDINGS: Lateral view of the thoracic and lumbar spine shows no evidence of compression fractures. Bone mineral density measurements of the lumbar spine correspond to a total T-score of 0.2, in the n ormal range. Bone mineral density measurements of the left hip correspond to a total T-score of -1.4. The femora l neck T-score is -1.0, in the mildly osteopenic range.. Theleft forearm bone mineral density measurements correspond to a T-score of the distal 3rd of -0.4, in the normal range.. IMPRESSION: Normal bone mineral density of the lumbar spine and forearm. Mild osteopenia of the hip.
--- NOTE | 2023-07-31 07:53 | DI.MAMMO_ITS ---
Exam(s) MAMMO SCREENING EXAM: MAMMO SCREENING CLINICAL HISTORY: screening,z12.39 TECHNIQUE: Mammograms were interpreted according to the usual protocol including computer analysis w [employer] CAD system, tomosynthesis and C-view imaging. COMPARISON: One thousand six through 2012 FINDINGS: The breasts are composed of scattered fibroglandular densities, Breast Density category B. No suspicious masses or suspicious microcalcifications are seen. No skin thickening or abnormal axillary lymph nodes are seen. There has been no significant change from prior exams. IMPRESSION: BI-RADS Category 1, Negative mammogram Yearly screening mammography is recommended. Breast Density - Category B, scattered fibroglandular densities. A negative radiographic report should not delay biopsy if a dominant or clinically suspicious mass is present. Up to ten percent of cancers are not identified on mammography. A negative report may reinforce clinical impression. Adenosis and dense breasts may obscure an underlying neoplasm. False positive reports average 6 to 10%. Patient will receive a letter notifying them of these results.
== END ==
PROVIDERS: PCP Family Medicine; Visit Provider Family Medicine
DX: Z12.31 Encounter for screening mammogram for malignant neoplasm of breast (principal); Z78.0 Asymptomatic menopausal state; Z13.820 Encounter for screening for osteoporosis
CPT/HCPCS: 77063; 77067; 77080

== ENCOUNTER 2023-08-01 09:29 | Outpatient (CLI) | payer OTHER, SELFPAY ==
[2023-08-01 12:53] LABS: ALT 49 U/L (14-59); AST 44 U/L (15-37); Albumin 4.2 g/dL (3.4-5.0); Alkaline Phosphatase 90 U/L (46-116); Anion Gap 8.1 mmol/L (3-11); BUN 8 mg/dL (7-18); Bilirubin, Total 0.8 mg/dL (0.2-1.0); CO2 27.9 mmol/L (21.0-32.0); CREATININE 0.8 mg/dL (0.55-1.02); Calcium 9.4 mg/dL (8.5-10.1); Chloride 96 mmol/L (98-107); Estimated GFR 81.21 (mL/min/1.73m2); Glucose 107 mg/dL (74-106); Potassium 4.3 mmol/L (3.5-5.1); Sodium 132 mmol/L (136-145); Total Protein 7.7 g/dL (6.4-8.2)
== END 2023-08-01 09:30 | disposition home or self-care (01) ==
LOC: LOS 09:29
PROVIDERS: PCP Family Medicine; Referring Provider Nurse Practitioner Family; Visit Provider Nurse Practitioner Family
DX: Z00.00 Encounter for general adult medical examination without abnormal findings (principal); I10 Essential (primary) hypertension
CPT/HCPCS: 36415; 80053

== ENCOUNTER 2023-11-14 21:52 | Outpatient (REF) | payer MEDICARE, SELFPAY | END 2023-11-14 21:53 | disposition home or self-care (01) | LOC: LBN 21:52 | PROVIDERS: PCP Family Medicine; Visit Provider Nurse Practitioner Family | DX: J02.9 Acute pharyngitis, unspecified (principal) | CPT/HCPCS: 87081 ==

== ENCOUNTER 2024-04-24 17:36 | Emergency (ER) | payer MEDICARE, SELFPAY ==
[2024-04-24] VITALS (11 sets, daily range): BP systolic 118–138; BP diastolic 64–87; PULSE 59–88; RESP 15–24; TEMP 36.6–36.9; O2SAT 95–99
--- NOTE | 2024-04-24 17:30 | DI.CT_ITS ---
Exam(s) CT HEAD CERVICAL SPINE WO EXAM: CT HEAD CERVICAL SPINE WO CLINICAL HISTORY: head trauma while intoxicated. TECHNIQUE: Imaging Protocol: Axial computed tomography images with coronal and sagittal reformatted images were created and reviewed COMPARISON: No exams were available for comparison FINDINGS: CT Head: Ventricles and Extra axial spaces: Normal in size and morphology for the patient's age. Hemorrhage: None. Cerebral parenchyma: There are areas of decreased attenuation in the white matter most suggestive of chronic microvascular ischemic disease. No acute territorial infarct is seen. No mass effect is pre sent. Midline shift: None. Brainstem/Cerebellum: Normal. Calvarium: Normal. Visualized Paranasal sinuses/Mastoids: Clear. Soft Tissues: Unremarkable. CT Cervical Spine: Bones: No acute fracture or subluxation. Age-appropriate degenerative changes are seen in the cervica l spine. There is straightening of the normal cervical lordosis. This may be due to muscle spasm or patient positioning. Soft Tissues: Unremarkable. Lung Apices: Clear. IMPRESSION: 1. No acute intracranial process. 2. No acute fracture or subluxation in the cervical spine. RADIATION DOSE DELIVERED: 1,342.51mGy.cm Total DLP DATA REPOSITORY: All CT scans at this facility are submitted to the National Radiology Data Registry (NRDR) Dose Index Registry (DIR) with the [employer] (ACR). RADIATION OPTIMIZATION: All CT scans at this facility use at least one of these dose optimization te chniques: automated exposure control; mA and/or kV adjustment per patient size (includes targeted exa ms where dose is matched to clinical indication); or iterative reconstruction.
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
[2024-04-24] MEDS: Lidocaine/Epinephri/Tetracaine Topical Gel 3 ML TP (17:57)
[2024-04-24 18:26] LABS: HCT 35.8 % (36.0-46.0); HGB 12.6 g/dL (11.2-15.7); MCH 35.3 pg (27.0-33.0); MCHC 35.2 % (32.0-36.0); MCV 100 fL (80-95); MPV 9.3 fL (8.0-11.0); Platelet Count 225 10^3/uL (130-400); RBC 3.57 10^6/uL (3.93-5.22); RDW-SD 44.2 fL; WBC 5.68 10^3/uL (4.4-10.8)
[2024-04-24 18:36] LABS: ALT 72 U/L (14-59); AST 107 U/L (15-37); Albumin 3.8 g/dL (3.4-5.0); Alkaline Phosphatase 81 U/L (46-116); Anion Gap 14.7 mmol/L (3-11); BUN 10 mg/dL (7-18); Bilirubin, Total 0.5 mg/dL (0.2-1.0); CO2 21.3 mmol/L (21.0-32.0); CREATININE 0.6 mg/dL (0.55-1.02); Calcium 8.2 mg/dL (8.5-10.1); Chloride 93 mmol/L (98-107); ETHANOL BLOOD 265.5 mg/dL (<10); Estimated GFR 98.32 (mL/min/1.73m2); Glucose 88 mg/dL (74-106); Potassium 4.3 mmol/L (3.5-5.1); Sodium 129 mmol/L (136-145); Total Protein 6.7 g/dL (6.4-8.2)
--- NOTE | 2024-04-24 19:34 | DI.VRAD_ITS ---
PROCEDURE INFORMATION: Exam: CT Head Without Contrast Exam date and time: 04/24/2024 7:09 PM Age: 69 years old Clinical indication: Injury or trauma; Fall; Blunt trauma (contusions or hematomas); Injury details: Head trauma while intoxicated TECHNIQUE: Imaging protocol: Computed tomography of the head without contrast. COMPARISON: No relevant prior studies available. FINDINGS: Brain:Mild volume loss No hemorrhage.Moderate white matter disease.No mass effect. Cerebral ventricles: No ventriculomegaly. Paranasal sinuses: Visualized sinuses are unremarkable. No fluid levels. Mastoid air cells: Small left mastoid effusion. Bones: Unremarkable. No acute fracture. Soft tissues: Unremarkable. IMPRESSION: No acute intracranial hemorrhage PROCEDURE INFORMATION: Exam: CT Cervical Spine Without Contrast Exam date and time: 04/24/2024 7:09 PM Age: 69 years old Clinical indication: Injury or trauma; Fall; Blunt trauma (contusions or hematomas); Injury details: Head trauma while intoxicated TECHNIQUE: Imaging protocol: Computed tomography of the cervical spine without contrast. COMPARISON: CT CHEST LUNG CANCER SCREEN 07/05/2023 7:28 AM FINDINGS: Bones: No acute fracture. Straightening of the cervical lordosis may be positional or related to muscle spasm.No significant disc bulge or herniation. No severe spinal canal stenosis. No significant neural foraminal narrowing. Lungs: Lung apices are normal. Soft tissues: Unremarkable. IMPRESSION: No acute findings. Dictated and Authenticated by: Guzman Trejo MD. Ordering:SUZANNE Fairbanks MD
[2024-04-24] MEDS: Normal Saline 1,000 ML 1000 ML IV (19:44)
[2024-04-24] MEDS: Ketorolac 15 MG/ML VIAL IM (19:44)
[2024-04-24] MEDS: Lidocaine 5% Patch 1 PATCH TP (19:49)
--- NOTE | 2024-04-24 19:57 | NUR.NOTE ---
Referral faxed to [facility] Roro Greene to f/u in 1-2 weeks for head injury s/p fall.Nursing Note:
== END 2024-04-24 20:14 | disposition home or self-care (01) ==
PROVIDERS: Emergency Provider Nurse Practitioner Family; PCP Family Medicine
DX: F10.120 Alcohol abuse with intoxication, uncomplicated (principal); S01.81XA Laceration without foreign body of other part of head, initial encounter; P74.22 Hyponatremia of newborn; I10 Essential (primary) hypertension; Y90.8 Blood alcohol level of 240 mg/100 ml or more; W01.198A Fall on same level from slipping, tripping and stumbling with subsequent striking against other object, initial encounter; Y93.01 Activity, walking, marching and hiking; Y92.012 Bathroom of single-family (private) house as the place of occurrence of the external cause
CPT/HCPCS: 12013; 80053; 82962; 85027; 99284; 70450; 72125; 80320; J1885

== ENCOUNTER 2024-08-20 01:12 | Outpatient (CLI) | payer MEDICARE, SELFPAY ==
--- NOTE | 2024-08-20 08:32 | DI.CTLCSR_ITS ---
Exam(s) CT CHEST LUNG CANCER SCREEN EXAM: CT CHEST LUNG CANCER SCREEN CLINICAL HISTORY: Screening for lung cancer,personal h/o nicotine dependence,z87.891 TECHNIQUE: Imaging Protocol: Axial computed tomography images with coronal and sagittal reformatted images were created and reviewed. Low dose screening protocol. COMPARISON: CT CT CHEST LUNG CANCER SCREEN from 07/05/2023 FINDINGS: Tracheobronchial tree: No bronchiectasis or mucus plugging. Mediastinum and Coco: No dominant adenopathy or fluid collection. Pulmonary parenchyma: No consolidation or dominant measurable mass. No visible emphysematous changes. Lung Nodules: Stable 4 millimeter perifissural nodule between left upper and lower lobes. Stable 2 m illimeter nodule left upper lobe. Pleura: No effusion. No pneumothorax. Heart: The heart is not dilated. No coronary artery calcifications are seen. Aorta: Thoracic aorta non-dilated. Upper abdomen: Unremarkable. Bones: Osteophytes in the thoracic spine. No compression fractures or suspicious lesions. Soft Tissues: Unremarkable. IMPRESSION: No suspicious pulmonary nodules. Lung RADS Cat 2 - Benign Appearance / Behavior: Nodules with a very low likelihood of becoming a clin ically active cancer due to size or lack of growth Lung-RADS 1.0 CATEGORIES: Category 0 - Prior chest CT exam(s) being located for comparison. Category 1 - Annual screening in 12 months. No nodules or definitely benign nodules. Category 2 - Annual screening in 12 months. Benign appearance. Nodules with low likelihood of becomin g active cancer. Category 3 - 6-month follow-up. Probably benign. Short-term follow-up suggested. Nodules with low lik elihood of becoming active cancer. Category 4A - 3-month follow-up and CT/PET if >8 mm in size. Suspicious finding. Findings which requi re additional testing. Category 4B - Findings which require additional testing and tissue sampling. Category 4X - Category 3 or 4 nodules with additional features or imaging findings that increases the suspicion of malignancy. Modifier S- Potentially clinically significant findings (non lung cancer) RADIATION DOSE DELIVERED: !Error Total DLP DATA REPOSITORY: All CT scans at this facility are submitted to the National Radiology Data Registry (NRDR) Dose Index Registry (DIR) with the [employer] (ACR). RADIATION OPTIMIZATION: All CT scans at this facility use at least one of these dose optimization te chniques: automated exposure control; mA and/or kV adjustment per patient size (includes targeted exa ms where dose is matched to clinical indication); or iterative reconstruction.
== END 2024-08-20 01:32 ==
LOC: DI 01:12
PROVIDERS: PCP Family Medicine; Visit Provider Family Medicine
DX: Z87.891 Personal history of nicotine dependence (principal); Z12.2 Encounter for screening for malignant neoplasm of respiratory organs
CPT/HCPCS: 71271

== ENCOUNTER 2025-01-08 00:47 | Outpatient (CLI) | payer MEDICARE, SELFPAY ==
--- NOTE | 2025-01-08 06:45 | DI.RAD_ITS ---
Exam(s) XR KNEE RT 3V AP,LAT,IRWIN EXAM: XR KNEE RT 3V AP,LAT,IRWIN CLINICAL HISTORY: bilat knee pain,patellofemoral arthralgia,m22.2x2,markus.2x1. TECHNIQUE: 2D digital imaging was performed of the right knee. Three views obtained. AP, lateral an d PA tunnel views were obtained. COMPARISON: There are no priors for comparison. FINDINGS: BONES: No acute fracture is present. No bony destructive lesion is seen. There are enthesophytes at t he anterior patella. JOINTS: There is marked narrowing of the medial femoral tibial joint. There osteophytes in all 3 juli nt compartments. There is a small joint effusion. SOFT TISSUE: Normal. IMPRESSION: Osteoarthritis of the right knee. DATA REPOSITORY: RADIATION DOSE DELIVERED:
--- NOTE | 2025-01-08 06:45 | DI.RAD_ITS ---
Exam(s) XR KNEE LT 3V AP,LAT,IRWIN EXAM: XR KNEE LT 3V AP,LAT,IRWIN CLINICAL HISTORY: bilat knee pain,patellofemoral arthralgia both knees,m22.2x1,m22.2x2. TECHNIQUE: 2D digital imaging was performed of the left knee. Three images were obtained. AP, late ral and PA tunnel views were obtained. COMPARISON: No priors for comparison. FINDINGS: BONES: No acute fracture is present. No bony destructive lesion is seen. There are enthesophytes at the anterior patella. JOINTS: There is marked narrowing of the medial femoral tibial joint. There osteophytes seen in the medial femoral tibial in the posterior patella. There is a small joint effusion. No loose body. SOFT TISSUE: Normal. IMPRESSION: Osteoarthritis of the left knee. DATA REPOSITORY: RADIATION DOSE DELIVERED:
== END 2025-01-08 01:07 ==
LOC: DI 00:47
PROVIDERS: PCP Family Medicine; Visit Provider Family Medicine
DX: M22.2X1 Patellofemoral disorders, right knee (principal); M22.2X2 Patellofemoral disorders, left knee; M17.0 Bilateral primary osteoarthritis of knee
CPT/HCPCS: 36415; 73562; 80053; 85025; 85610

== ENCOUNTER 2025-01-08 12:51 | Outpatient (CLI) | payer MEDICARE, SELFPAY ==
[2025-01-08 12:25] LABS: Abs Immature Grans 0.03 10^3/uL (0.0-0.06); Absolute Eosinophil Count 0.18 10^3/uL (0.0-0.7); Absolute Lymphocyte Count 2.59 10^3/uL (1.2-3.4); Absolute Monocyte Count 0.85 10^3/uL (0.1-0.8); Absolute Neutrophil Count 2.39 10^3/uL (1.2-6.7); Basophils % 1.6 %; Eosinophils % 2.9 %; HCT 37.8 % (36.0-46.0); HGB 12.5 g/dL (11.2-15.7); Immature Grans % 0.5 %; Lymphocytes % 42.2 %; MCHC 33.1 % (32.0-36.0); MCV 100 fL (80-95); MPV 8.5 fL (8.0-11.0); Monocytes % 13.8 %; Platelet Count 481 10^3/uL (130-400); RBC 3.79 10^6/uL (3.93-5.22); RDW 12.3 % (11.7-14.6); RDW-SD 45.3 fL; WBC 6.14 10^3/uL (4.4-10.8)
[2025-01-08 12:34] LABS: INR 0.9 (0.9-1.1); Prothrombin Time 9.3 sec (9.1-11.1)
[2025-01-08 14:24] LABS: ALT 28 U/L (14-59); AST 22 U/L (15-37); Albumin 3.2 g/dL (3.4-5.0); Alkaline Phosphatase 96 U/L (46-116); Anion Gap 7.1 mmol/L (3-11); BUN 10 mg/dL (7-18); Bilirubin, Total 0.16 mg/dL (0.2-1.0); CO2 26.9 mmol/L (21.0-32.0); CREATININE 0.7 mg/dL (0.55-1.02); Chloride 102 mmol/L (98-107); Estimated GFR 94.15 (mL/min/1.73m2); Glucose 101 mg/dL (74-106); Sodium 136 mmol/L (136-145); Total Protein 6.8 g/dL (6.4-8.2)
== END 2025-01-08 12:52 | disposition home or self-care (01) ==
LOC: LBO 12:52
PROVIDERS: PCP Family Medicine; Visit Provider Family Medicine
DX: K70.0 Alcoholic fatty liver (principal); Z79.01 Long term (current) use of anticoagulants
CPT/HCPCS: 36415; 80053; 85025; 85610

== ENCOUNTER → 2025-07-16 09:17 | Outpatient (BNVA) | payer MEDICARE, SELFPAY | PROVIDERS: PCP Family Medicine; Referring Provider Family Medicine; Visit Provider Physical Therapy Assistant | DX: Z12.11 Encounter for screening for malignant neoplasm of colon (principal); R00.2 Palpitations; Z86.0101 Personal history of adenomatous and serrated colon polyps | CPT/HCPCS: S0285 ==

== ENCOUNTER 2025-07-17 13:29 | Outpatient (CLI) | payer MEDICARE, SELFPAY ==
--- NOTE | 2025-07-17 13:15 | RT.EKG_ITS ---
APPROVED REPORT Exam: Resting ECG Reason for Exam: Evaluation Patient Location: O HR:74 bpm ECG Measurements Heart Rate 74 AXIS SD 163 P 74 QRSd 115 QRS 24 QT 421 T 78 QTc 467 Conclusion Sinus rhythm...normal P axis, V-rate 50- 99
== END 2025-07-17 13:30 | disposition home or self-care (01) ==
PROVIDERS: PCP Family Medicine; Visit Provider Family Medicine
DX: I49.9 Cardiac arrhythmia, unspecified (principal)
CPT/HCPCS: 93010

== ENCOUNTER 2025-07-23 09:58 | Outpatient (RCR) | payer MEDICARE, SELFPAY ==
--- NOTE | 2025-07-28 09:29 | W.HOLTRPT ---
Date of service: 07/28/25 Time of Service: 09:29 Holter Monitor Report Referring Provider:: Roro Greene Indications:: Palpitations Holter Monitor Note: This is a 48-hour Holter monitor Rhythm throughout was sinus with an average heart rate overall of 79. Minimum was 58, maximum 114 There were very rare isolated ventricular ectopic beats There were occasional atrial premature beats. Self-limited atrial runs occurred. These were generally less than 10 beats in duration and all were asymptomatic There was no atrial fibrillation, no high-grade AV block, no pauses greater than 3 seconds Symptoms were reported which had no correlation to any dysrhythmia
== END 2025-08-18 23:59 | disposition home or self-care (01) ==
LOC: CARDOPNVT 09:58
PROVIDERS: PCP Family Medicine; Visit Provider Family Medicine
DX: R00.2 Palpitations (principal)
CPT/HCPCS: 93227; 93225; 93226

== ENCOUNTER 2025-07-31 03:43 | Outpatient (CLI) | payer MEDICARE, SELFPAY ==
--- NOTE | 2025-07-31 08:30 | DI.US_ITS ---
APPROVED REPORT EXAM: Comprehensive 2D, Doppler, and color-flow Echocardiogram Patient Location: Out-Patient Primary [employer] Teacher: Hiram Hunt RDCS (AE) Indications: Heart murmur, hypertension, palpitations Other Information Study Quality: Adequate Conclusion Normal left ventricular wall thickness and chamber size. Ejection fraction is 60 to 65%. Wall motion is normal Normal right ventricular size and function Both atria are normal in size There is no structural or hemodynamically significant valvular disease Wall motion Left Ventricle The left ventricle is normal size. The left ventricular systolic function is normal. The left ventricular ejection fraction is within the normal range. There is normal left ventricular wall thickness. There is normal LV segmental wall motion. There is no ventricular septal defect visualized. LVEF is 60-65%. Right Ventricle The right ventricle is normal size. The right ventricular systolic function is normal. Atria The left atrium size is normal. The right atrium size is normal. The interatrial septum is intact with no evidence for an atrial septal defect. Aortic Valve The aortic valve is normal in structure. Aortic valve is trileaflet. There is no aortic valvular stenosis. No aortic regurgitation is present. Mitral Valve The mitral valve is normal in structure. No evidence of mitral valve stenosis. There is no mitral valve regurgitation noted. Tricuspid Valve The tricuspid valve is normal in structure. There is no tricuspid valve stenosis. Trace tricuspid regurgitation. Pulmonic Valve The pulmonary valve is normal in structure. There is no pulmonic valvular stenosis. There is no pulmonic valvular regurgitation. Great Vessels The aortic root is normal in size. Ascending aorta is not well visualized. IVC is normal in size and collapses >50% with inspiration. Pericardium There is no pericardial effusion. 2D Dimensions IVSD d PLAX 0.90 cm F: 0.6-1.0 Ao Root d 2.95 cm F: 2.7 - 3.3 LVPW d PLAX 0.89 cm F: 0.6 - 1.0 LVID d PLAX 4.42 cm F: 3.8 - 5.2 LVDs 3.03 cm F: 2.2 - 3.5 LV EF Teichholz 59.6 % FS 31.50 % LV EDV (Teich) 88.7 mL LV ESV (Teich) 35.8 mL Stroke Vol Index (Teich) 29.39 M-Mode TAPSE 2.54 cm (M/F) >1.7 Auto EF LV EDV A4C 84.1 mL LV EDV A2C 87.5 mL LV EDV BP 88.1 mL LV ESV A4C 33.6 mL LV ESV A2C 31.1 mL LV ESV BP 33.1 mL LVEF(%) A4C 60.0 % LVEF(%) A2C 64.5 % LVEF(%) BP 62.4 % LV SV A4C 50.5 ml LV SV A2C 56.5 ml LV SV BP 54.9 ml LV CO A4C 3.7 L/min LV CO A2C 4.0 L/min LV CO BP 3.9 L/min HR A4C 74.23 BPM HR A2C 71.43 BPM LV EDV Index (BP) LA Volume LA Length A4C 3.7 cm LA Length A2C 4.9 cm LA Area A4C s 7.80 cm2 LA Area A2C s 12.63 cm2 LA Vol A4C A-L 13.98 mL LA Vol A2C A-L 27.63 mL LA Vol Biplane A-L 22.6 mL LA Vol/BSA A4C A-L LA Vol/BSA A2C A-L LA Vol/BSA BP A-L 12.6 mL/m2 LA Vol A4C MOD 12.9 mL LA Vol A2C MOD 26.3 mL LA Vol BP MOD 21.1 mL RA Volume RA Area A4C 7.2 cm2 RA ESV A4C (A-L) 14.6mL RA Vol/BSA A4C A-L RA Length A4C 3.0 cm RA ESV A4C (MOD) 14.5mL LV Diastology MV E' medial 0.111 (>0.07 m/s) MV E Vmax 0.56 (0.4-1.3 m/s) MV E/E' MED 5.05 (<14) MV A Vmax 0.75 (0.4-1.3 m/s) MV E' lateral 0.123 (>0.1 m/s) E/A Ratio 0.7 MV E/E' LAT 4.57 (<14) MV E' Average 0.117 m/s MV E/E'(average) 4.80 Aortic Valve AoV Vmax 1.62 m/s LVOT Vmax 1.54 m/s AoV Peak Grad 10.5 mmHg LVOT Peak Grad 9.5 mmHg AoV Area (Vmax) 3.07 cm2 LVOT VTI 0.325 m AoV VTI 0.328 m LVOT Mean Grad 4.8 mmHg AoV Mean Severo. 1.06 m/s LVOT SV 104.58 mL AoV Mean Grad 5.2 mmHg LVOT Diam s 2.00 cm AoV Area (VTI) 3.19 cm2 AV Regurg Peak Gr. 10.50 mmHg Velocity Ratio 0.95 Mitral Valve MV DT 236 (160-240 msec) Pulmonary Valve PV Vmax 0.91 (0.5-1.5 m/s) RVOT Vmax 0.57 m/s PV Peak Grad 3.4 mmHg RVOT Peak Gr. 1.3 mmHg PV Mean Severo 0.58 m/s RVOT VTI 0.127 m PV Mean Grad 1.6 mmHg RVOT Mean Gr. 0.7 mmHg
== END 2025-07-31 04:03 ==
LOC: DI 03:43
PROVIDERS: PCP Family Medicine; Visit Provider Internal Medicine Cardiovascular Disease
DX: R01.1 Cardiac murmur, unspecified (principal); I10 Essential (primary) hypertension; R00.2 Palpitations
CPT/HCPCS: 93306

== ENCOUNTER 2025-08-26 02:03 | Outpatient (CLI) | payer MEDICARE, SELFPAY ==
--- NOTE | 2025-08-26 06:00 | DI.CTLCSR_ITS ---
Exam(s) CT CHEST LUNG CANCER SCREEN EXAM: CT CHEST LUNG CANCER SCREEN CLINICAL HISTORY: Screening for lung cancer,cigarette smoker,f17.210 TECHNIQUE: Imaging Protocol: Axial computed tomography images with coronal and sagittal reformatted images were created and reviewed. Lung Computer Aided Detection (CAD) was utilized. COMPARISON: CT CT CHEST LUNG CANCER SCREEN from 03/11/[address] CHEST LUNG CANCER SCREEN from 07/05/[address] CHEST LUNG CANCER SCREEN from 08/20/2024 FINDINGS: Tracheobronchial tree: Patent where visualized. No bronchiectasis. Pulmonary parenchyma: No consolidation or dominant measurable mass. There is stable mild scarring in the right middle lobe. Lung Nodules: The perifissural nodule associated with the left major fissure is unchanged. The previously seen left apical pulmonary nodule is not present on the current examination. There are no suspicious pulmonary nodules present. Mediastinum and Coco: No dominant adenopathy or fluid collection. The esophagus is unremarkable. Thyroid gland: Unremarkable. Lymph nodes: Unremarkable. Pleura: No effusion or pneumothorax. Heart: The heart is not dilated. No coronary artery calcifications are seen. No pericardial effusion. Aorta: The ascending thoracic aorta measures 4.1 x 3.8 cm. There is mild atherosclerotic calcification present. Upper abdomen: Unremarkable. Soft Tissues: Unremarkable. Bones: Within normal limits. IMPRESSION: There are no suspicious pulmonary nodules. Lung RADS Cat 2 - Benign Appearance / Behavior: Nodules with a very low likelihood of becoming a clinically active cancer due to size or lack of growth Lung-RADS 1.0 CATEGORIES: Category 0 - Prior chest CT exam(s) being located for comparison. Category 1 - Annual screening in 12 months. No nodules or definitely benign nodules. Category 2 - Annual screening in 12 months. Benign appearance. Nodules with low likelihood of becoming active cancer. Category 3 - 6-month follow-up. Probably benign. Short-term follow-up suggested. Nodules with low likelihood of becoming active cancer. Category 4A - 3-month follow-up and CT/PET if >8 mm in size. Suspicious finding. Findings which require additional testing. Category 4B - Findings which require additional testing and tissue sampling. Suspicious finding. Category 4X - Category 3 or 4 nodules with additional features or imaging findings that increases the suspicion of malignancy. Modifier S- Potentially clinically significant finding. (Non lung cancer) RADIATION DOSE DELIVERED: 59mGy.cm Total DLP 59mGy.cmTotal DLP DATA REPOSITORY: All CT scans at this facility are submitted to the National Radiology Data Registry (NRDR) Dose Index Registry (DIR) with the [employer] (A[employer]). RADIATION OPTIMIZATION: All CT scans at this facility use at least one of these dose optimization techniques: automated exposure control; mA and/or kV adjustment per patient size (includes targeted exams where dose is matched to clinical indication); or iterative reconstruction.
--- NOTE | 2025-08-26 09:15 | DI.MAMMO_ITS ---
Exam(s) MAMMO SCREENING EXAM: MAMMO SCREENING CLINICAL HISTORY: screening,z12.39. TECHNIQUE: Bilateral full field digital CC and MLO mammographic images were obtained with 3D tomosynthesis and utilizing computer aided detection (CAD). COMPARISON: Prior mammograms were reviewed. FINDINGS: There has been no significant change in the appearance and distribution of the fibroglandular tissue. There are no CAD designations. No new left breast findings. In the right breast there is a small well-defined noncalcified nodule located lateral of center measuring 5 x 4 mm, 5 cm in from the nipple. This appears slightly larger than on the 2023 mammogram. There are no malignant-appearing microcalcification groups is region or elsewhere in either breast. There is no significant architectural distortion nor skin thickening-retraction. IMPRESSION: 1. Radiographic evidence of malignancy in left breast. 2. Benign-appearing right breast nodule which has slightly increased in size compared to 2023. Spot compression view and ultrasound recommended. BI-RADS Category 0 - Incomplete: Need additional imaging evaluation Breast Density - Category B - There are scattered areas of fibroglandular density. Breast density Category C or D implies that the patient has dense breast tissue. Dense breast tissue can make it harder to find cancer on a mammogram. Dense breast tissue is also associated with an increased risk of breast cancer. This information about the result of the mammogram report was provided to the patient to raise their awareness. Use this report when you speak with the patient about their risks for breast cancer, which includes their family history. At that time, you may recommend additional screening tests (Ultrasound or MRI) as these tests may add significant information. A negative radiographic report should not delay biopsy if a dominant or clinically suspicious mass is present. Up to ten percent of cancers are not identified on mammography. A negative report may reinforce clinical impression. Adenosis and dense breasts may obscure an underlying neoplasm. False positive reports average 6 to 10%. Patient will receive a letter notifying them of these results.
== END 2025-08-26 02:23 ==
LOC: DI 02:03
PROVIDERS: PCP Family Medicine; Visit Provider Family Medicine
DX: Z12.31 Encounter for screening mammogram for malignant neoplasm of breast (principal); I10 Essential (primary) hypertension; F17.210 Nicotine dependence, cigarettes, uncomplicated; Z12.2 Encounter for screening for malignant neoplasm of respiratory organs; C50.112 Malignant neoplasm of central portion of left female breast
CPT/HCPCS: 71271; 77063; 77067

== ENCOUNTER 2025-09-01 02:20 | Outpatient (CLI) | payer MEDICARE, SELFPAY ==
--- NOTE | 2025-09-01 | DI.US_ITS ---
Exam(s) MG MAMMO SCREEN CALL BACK UNI US BREAST RT LIMITED EXAM: MG MAMMO SCREEN CALL BACK UNI CLINICAL HISTORY: F/U [facility] MAMMO, R92.8, RT BREAST NODULE INCREASED IN SIZE. TECHNIQUE: Craniocaudal and mediolateral oblique spot compression digital Mammography views of the rightbreast with Tomosynthesis and right breast ultrasound. COMPARISON: DOC,MG MM DIGITAL SCR * BILATERAL W ASSOC[facility] CHG from 09/24/2013 MG MG MAMMO SCREENING from 07/31/2023 MG MG MAMMO SCREENING from 08/26/2025 US US BREAST RT LIMITED from 09/01/2025 FINDINGS: Mammography/Tomosynthesis: Masses: No suspicious masses. Persistent circumscribed nodule in the lateral left breast. Architectural Distortion: None seen. Microcalcifictions: No suspicious pleomorphic-type are seen. Skin Thickening/Nipple Retraction: None. Right breast US: Echotexture: Normal appearance of the glandular tissue. Shadowing: No suspicious foci. Cyst: 5 millimeter simple cyst 9 o'clock position 3 cm from the nipple. Solid lesions: None seen. Ductal dilation: None. IMPRESSION: 1. No evidence of malignancy is noted. 5 millimeter simple cyst. 2. Unless there is more urgent need, follow-up screening mammography is recommended, as per [employer] guidelines. 3. The findings were discussed with the patient on the date of the examination. BI-RADS Category 2 - Benign Findings Breast Density - Category B - There are scattered areas of fibroglandular density. Breast density Category C or D implies that the patient has dense breast tissue. Dense breast tissue can make it harder to find cancer on a mammogram. Dense breast tissue is also associated with an increased risk of breast cancer. This information about the result of the mammogram report was provided to the patient to raise their awareness. Use this report when you speak with the patient about their risks for breast cancer, which includes their family history. At that time, you may recommend additional screening tests (Ultrasound or MRI) as these tests may add significant information. A negative radiographic report should not delay biopsy if a dominant or clinically suspicious mass is present. Up to ten percent of cancers are not identified on mammography. A negative report may reinforce clinical impression. Adenosis and dense breasts may obscure an underlying neoplasm. False positive reports average 6 to 10%. Patient will receive a letter notifying them of these results.
== END 2025-09-01 02:40 ==
LOC: DI 02:20
PROVIDERS: PCP Family Medicine; Visit Provider Family Medicine
DX: Z12.31 Encounter for screening mammogram for malignant neoplasm of breast (principal); N63.15 Unspecified lump in the right breast, overlapping quadrants
CPT/HCPCS: 76642; 77063; 77067